=== PATIENT | male | born 1995 | race Asian ===

== ENCOUNTER 2019-07-16 02:04 | Emergency (ER) | payer OTHER ==
[~2019-07-16] VITALS: Ht 162.6 cm; Wt 59.0 kg
[2019-07-16] MEDS ORDERED: LEVETIRACETAM (500MG) 500 MG/5 ML VIAL IV ONE (02:15)
[2019-07-16] MEDS ORDERED: LORAZEPAM INJ 2 MG/ML VIAL ONE (02:16)
--- NOTE | 2019-07-16 02:20 | NUR ---
SHANNON FROM HOME FOR C/O WITHNESSED SEIZURE AT HOME. PT CURRENTLY A, ORIENTED AND RESPONSIVE BUT WEAK. NO OBVIOUS TRAUMA NOTED. PT REPORTED ANOTHER SEIZURE EPISODE 3 MOS AGO AND ADMIOTTED TO DRINKING ALCOHOL LAST NIGHT, PT WAS PLACED ON A MONITOR, VSS. WILL CONT TO MONITOR ,
[2019-07-16] MEDS ORDERED: LEVETIRACETAM (500MG) 500 MG in IV NS 0.9% 100 ML IV ONE (02:30)
[2019-07-16] MEDS ORDERED: LORAZEPAM INJ 2 MG/ML VIAL IVP ONE (02:30)
[2019-07-16] MEDS ORDERED: IV NS 0.9% 1,000 ML BAG IV ONE (02:30)
[2019-07-16 02:41] LABS: BASOPHILS # (AUTO) 0.1 /CMM (0.0-0.2); BASOPHILS % (AUTO) 0.5 % (0.0-2.0); EOSINOPHILS % (AUTO) 0.2 % (0.0-6.0); HEMATOCRIT 52 % (39-51); HEMOGLOBIN 17.2 g/dL (13.5-17.5); LYMPHOCYTES # (AUTO) 3.9 /CMM (0.8-4.8); LYMPHOCYTES % (AUTO) 27.7 % (20.0-44.0); MEAN CORPUSCULAR HGB CONC 33 g/dl (31.0-36.0); MEAN CORPUSCULAR VOLUME 97 fL (80-96); NEUTROPHILS # (AUTO) 9.1 /CMM (1.8-8.9); NEUTROPHILS % (AUTO) 64.6 % (43.0-81.0); PLATELET COUNT (AUTO) 324 /CMM (150-450); RED BLOOD CELL COUNT(AUTO) 5.39 MIL/uL (4.5-6.0); WHITE BLOOD COUNT (AUTO) 14.2 K/uL (4.3-11.0)
--- NOTE | 2019-07-16 02:47 | NUR ---
BACK FROM CT
[2019-07-16 02:53] LABS: CALCIUM, SERUM 9.6 mg/dL (8.5-10.1); CARBON DIOXIDE 15 mmol/L (21-32); CHLORIDE 99 mmol/L (98-107); CREATININE 1.9 mg/dL (0.6-1.3); GLUCOSE 120 mg/dL (74-106); POTASSIUM 3.5 mmol/L (3.5-5.1); SODIUM SERUM 140 mmol/L (136-145); UREA NITROGEN, BLOOD 14 mg/dL (7-18)
[2019-07-16 02:59] LABS: ALANINE AMINOTRANSFERASE 19 U/L (12-78); ALBUMIN 5.1 g/dL (3.4-5.0); ALKALINE PHOSPHATASE 58 U/L (46-116); ASPARTATE AMINOTRANSFERASE 25 U/L (15-37); BILIRUBIN,DIRECT 0.2 mg/dL (0.0-0.2); BILIRUBIN,TOTAL 0.9 mg/dL (0.2-1.0); TOTAL PROTEIN, SERUM 8.8 g/dL (6.4-8.2)
[2019-07-16 03:00] LABS: ALCOHOL, BLOOD < 3 mg/dL (0-0)
--- NOTE | 2019-07-16 03:40 | NUR ---
at the bed side
--- NOTE | 2019-07-16 03:56 | NUR ---
pt is medcially cleared to d/c home. IV removed. Catheter intact and site benign. Pressure and 4x4 applied to site. No bleeding noted.Patient discharged to home in stable condition. Rx and Written and verbal after care instructions given. Patient verbalizes understanding of instruction . noted w/ steady gaits upon d/c and will get back home w/ [employer].
[2019-07-16 03:57] VITALS: BP 135/67
== END 2019-07-16 03:57 | disposition home or self-care (01) ==
LOC: ER 02:05 → EDBD 02:05 → ER 03:57
DX: R56.9 Unspecified convulsions (principal); S01.512A Laceration without foreign body of oral cavity, initial encounter; X58.XXXA Exposure to other specified factors, initial encounter; Y93.89 Activity, other specified; Y92.89 Other specified places as the place of occurrence of the external cause; Y99.8 Other external cause status
CPT/HCPCS: 36415; 70450; 80048; 80076; 80305; 80307; 85025; 85730; 96365; 96375; 99284; J1953; J2060; J7030 ×2; G0480